=== PATIENT | female | born 1950 | race Caucasian/White ===

== ENCOUNTER → 2017-03-01 | Outpatient (CLI) | payer MEDICARE ==
[~2017-03-01] MED LIST: ADVIL200 M1 PO; ALEVE220 MG PO; ALLEGRA ALLERG180 MG OR; ALLEGRA60 MG PO; ATORVASTATIN CA20 M1 PO; AZO CRANBERRY PO; B-12500 MC1 PO; BACTRIM DS 8001 TAB PO; CIPROFLOXACIN500 M2 PO; COQ-10100 MG PO; CRESTOR10 MG PO; HYDROCHLOROTHIA25 M1 PO; LISINOPRIL2.5 M1 PO; METRONIDAZOLE500 M2 PO; NITROFURANTOIN100 M3 PO; PANTOPRAZOLE40 M1 PO; PREDNISONE 10MG10 MG PO; VITAMIN D1 TAB PO
--- NOTE | 2017-03-02 07:36 | RADIOLOGY REPORT PS360 ---
ABD ACUTE(MUL VIEWS) HISTORY: ABDOMINAL PAIN ORDERING PHYSICIAN: Tri Ponce APRN PATIENT AGE: 66 years COMPARISON: None FINDINGS: Frontal view of the chest shows no acute finding. Mildly distended small bowel loops are present with air-fluid levels which may be due to ileus or enteritis. There are surgical clips in the right upper quadrant and right mid abdominal region as well as left lower quadrant. It is mild amount retained colonic feces. No free air. No urolithiasis or acute bony anomalies. IMPRESSION: Abnormal small bowel gas pattern which may be due to ileus or partial small bowel structure
== END ==
LOC: RAD 16:08
DX: R10.84 Generalized abdominal pain (principal)